=== PATIENT | male | born 1990 | race Caucasian/White ===

== ENCOUNTER 2019-12-03 17:41 | Outpatient (REF) | payer SELFPAY ==
[2019-12-03 19:35] LABS: SARS COV2 PCR INHOUSE NEGATIVE (Negative)
== END 2019-12-03 17:42 | disposition home or self-care (01) ==
LOC: HO.LAB 17:41
PROVIDERS: Visit Provider Internal Medicine
DX: Z20.828 Contact with and (suspected) exposure to other viral communicable diseases (principal)
CPT/HCPCS: 87635

== ENCOUNTER 2019-12-06 07:09 | Outpatient (REF) | payer SELFPAY ==
[2019-12-06 07:40] LABS: COVID-19 Test Negative (Negative)
== END 2019-12-06 07:10 | disposition home or self-care (01) ==
LOC: HO.LAB 07:09
PROVIDERS: Visit Provider Internal Medicine
DX: Z20.828 Contact with and (suspected) exposure to other viral communicable diseases (principal)
CPT/HCPCS: 87635

== ENCOUNTER 2020-01-19 15:12 | Outpatient (REF) | payer OTHER, SELFPAY ==
[2020-01-19 18:26] LABS: COVID-19 Test Negative (Negative); IDNOW Serial# 55D5AD1C
== END 2020-01-19 15:13 | disposition home or self-care (01) ==
LOC: HO.LAB 15:12
PROVIDERS: Visit Provider Internal Medicine
DX: Z20.828 Contact with and (suspected) exposure to other viral communicable diseases (principal)
CPT/HCPCS: 87635; C9803

== ENCOUNTER 2020-02-12 16:25 | Outpatient (REF) | payer OTHER, SELFPAY ==
[2020-02-12 17:38] LABS: COVID-19 Test Positive (Negative)
== END 2020-02-12 16:26 | disposition home or self-care (01) ==
LOC: HO.EMPCOV 16:25
PROVIDERS: Visit Provider Internal Medicine
DX: Z20.828 Contact with and (suspected) exposure to other viral communicable diseases (principal)
CPT/HCPCS: 87635

== ENCOUNTER 2020-12-15 11:40 | Outpatient (REF) | payer OTHER, SELFPAY ==
[2020-12-15 15:01] LABS: Influenza A PCR NEGATIVE (Negative); Influenza B PCR NEGATIVE (Negative); Resp Syncy Virus RNA Qual PCR NEGATIVE (Negative); SARS COV2 PCR INHOUSE NEGATIVE (Negative)
== END 2020-12-15 11:41 | disposition home or self-care (01) ==
LOC: HO.LAB 11:40
PROVIDERS: PCP Internal Medicine; Visit Provider Internal Medicine
DX: Z20.822 Contact with and (suspected) exposure to COVID-19 (principal)
CPT/HCPCS: 0241U; 36415

== ENCOUNTER 2021-08-12 15:57 | Outpatient (REF) | payer OTHER, SELFPAY ==
[2021-08-12 16:34] LABS: COVID-19 Test Negative (Negative); IDNOW Serial# 55D5AD1C
== END 2021-08-12 15:58 | disposition home or self-care (01) ==
LOC: HO.LAB 15:57
PROVIDERS: PCP Internal Medicine; Visit Provider Internal Medicine
DX: Z20.822 Contact with and (suspected) exposure to COVID-19 (principal)
CPT/HCPCS: 87635

== ENCOUNTER 2022-02-13 09:28 | Emergency (ER) | payer OTHER, SELFPAY ==
--- NOTE | ~2022-02-13 | XR_ITS ---
EXAMINATION: XR chest 2V CLINICAL INFORMATION: Reason for Exam chest pain COMPARISON: No prior chest x-ray available in our system for comparison at the time of this dictation. TECHNIQUE: XR chest 2V Lungs and Grace: Both lungs are clear. Pleura: Normal. Costophrenic angles are sharp. No pneumothorax. Heart: The heart is normal in size. Mediastinum: The mediastinum is within normal limits.. Bones: Skeletal structures included are normal for patient's age. XR/XR chest 2V IMPRESSION: Normal chest x-ray.
--- NOTE | 2022-02-13 09:30 | ECG_ITS ---
Test Reason : cp Blood Pressure : / mmHG Vent. Rate : 076 BPM Atrial Rate : 076 BPM P-R Int : 170 ms QRS Dur : 096 ms QT Int : 360 ms P-R-T Axes : 067 044 035 degrees QTc Int : 405 ms Normal sinus rhythm Normal ECG No previous ECGs available Referred By: Generic ED Physician Electronically Signed By:STEPHON ASHLEY
[2022-02-13 09:48] VITALS: BP 126/85; PULSE 78; RESP 18; TEMP 36.7; O2SAT 100; BMI 31.6
--- NOTE | 2022-02-13 10:16 | ED.CHESTPAIN ---
HPI - Chest Pain General Chief Complaint: Chest Pain Stated Complaint: chest pain Time Seen by Provider: 02/13/22 09:39 Source: patient Mode of arrival: ambulatory History of Present Illness HPI narrative: 31-year-old male without significant past medical history presents with substernal chest pain radiating into his back the prevented him from sitting up and deep breathing made the pain worse and although the pain has somewhat subsided still is strongest at mid back. He denies any traumatic injury and denies any association with fever, chills. Related Data Previous Rx's Medication Instructions Recorded cyclobenzaprine 5 mg tablet 5 mg PO BEDTIME PRN muscle spasm 02/13/22 #4 tabs ketorolac 10 mg tablet 10 mg PO Q6H PRN pain 5 days #20 02/13/22 tabs Allergies Allergy/AdvReac Type Severity Reaction Status Date / Time amoxicillin Allergy Unknown Unknown Verified 05/25/20 20:11 cats Allergy Severe swollen eye Uncoded 05/25/20 20:11 From AMOXIL Allergy Unknown UNKNOWN Uncoded 05/25/20 20:11 Review of Systems Review of Systems: Pertinent positives and negatives as stated in HPI. PMFSH Past Medical History Source: nursing notes reviewed Medical History Fatigue Sebaceous cyst Surgical History No history of previous surgery Family History Family History Mother No problems noted. Father No problems noted. Social History Social History Alcohol intake: never Advance Directives: No Advance Directives Information Provided: No Physical Exam Vital Signs: Vital Signs: Last Vital Signs Temp 98.1 F 02/13/22 09:48 Pulse 78 02/13/22 09:48 Resp 18 02/13/22 09:48 BP 126/85 02/13/22 09:48 Pulse Ox 100 02/13/22 09:48 O2 Del Method 02/13/22 09:48 BMI result Body Mass Index 31.6 VITAL SIGNS: Reviewed. GENERAL: Well developed, well nourished, in no acute distress. HEAD: Normocephalic/atraumatic EYES: PERRLA, EOMI EARS: Ext canals without abnormality OROPHARYNX: no oral lesions noted, posterior pharynx clear NECK: Supple, no adenopathy LUNGS: Normal breath sounds. No adventitious sounds or accessory muscle use. SpO2<100>; CHEST WALL: There is no pain on palpation CARDIOVASCULAR: Regular rate and rhythm without noted murmurs ABDOMEN: Soft, non-tender, non-distended with bowel sounds. BACK: There is midline vertebral tenderness at approximate T4/T6 with associated muscle spasm MUSCULOSKELETAL: No tenderness, deformities, or effusions noted on gross inspection. EXTREMITIES: No cyanosis, clubbing or edema. SKIN: Inspection of the skin reveals no rashes NEUROLOGIC: Alert and oriented x 4. Strength and sensation to light touch were grossly intact x 4. Medical Decision Making Medical Decision Making [facility] Narrative: 31-year-old male with presentation of substernal/back pain no clinical suspicion for aortic disease. I reviewed the investigations and there is no evidence to suggest PE, cardiac ischemia, pneumonia or pneumothorax. EKG is without acute findings. And viral testing is negative. Differential Diagnosis Differential Diagnoses: The differential diagnosis associated with the presentation includes I will rule out pneumonia, pneumothorax, PE, cardiac ischemia, viral infection Lab Data [facility] Lab Attestation statement: I reviewed the patient's lab results. Please see discussion above Labs: Lab Results 02/13/22 02/13/22 02/13/22 Range/Units 10:25 10:25 10:25 D-Dimer High Sensitivty < 150 NG/ML Troponin I High Sens (<3.5-35.0) ng/L COVID-19 (MICKY) Negative (Negative) COVID-19 Clin Com See Note Influenza Type A (GRETCHEN) Negative (Negative) Influenza Type B (GRETCHEN) Negative (Negative) Influenza A & B Note See Note 02/13/22 Range/Units 10:25 D-Dimer High Sensitivty NG/ML Troponin I High Sens < 3.5 (<3.5-35.0) ng/L COVID-19 (MICKY) (Negative) COVID-19 Clin Com Influenza Type A (GRETCHEN) (Negative) Influenza Type B (GRETCHEN) (Negative) Influenza A & B Note Independent Interpretation I performed an independent interpretation of an: EKG Interpretation: NSR, HR-76, no STEMI, WV/QRS/QTC is within normal limits. Radiology Impression Radiologist Impression: My interpretation is in agreement with radiology's impression of imaging study. Discharge Plan Discharge Clinical Impression: Back pain, Muscle spasm Patient Disposition: Home, Self-Care Instructions: Muscle Spasm (ED), Back Pain (ED) Additional Instructions: 1. Tylenol 1000 mg, orally, every 6 hours as needed for pain control. Do not exceed 4000 mg within 24 hours. 2. Lidocaine patch please apply to area of maximal tenderness as directed on the outside packaging. 3. I sent a prescription for Toradol and Flexeril to your pharmacy. 4. Follow-up with your primary care provider in the next 1-2 days for re-evaluation. Return to the ER for worsening symptoms. Prescriptions: New ketorolac 10 mg tablet 10 mg PO Q6H PRN (Reason: pain) 5 Days Qty: 20 0RF Rx Instructions: Patient received Toradol in the emergency room. cyclobenzaprine 5 mg tablet 5 mg PO BEDTIME PRN (Reason: muscle spasm) Qty: 4 0RF Referrals: Sanjiv Arguello PA-C [Primary Care Provider] - Stand Alone Forms: Work/School Release
[2022-02-13 10:46] LABS: D Dimer High Sensitivity < 150 NG/ML
[2022-02-13 10:51] LABS: COVID-19 Test Negative (Negative); IDNOW Serial# 55D5AD1C
[2022-02-13 10:55] LABS: IDNOW Serial# 9DB6401D; Influenza A Negative (Negative); Influenza B2 Negative (Negative)
[2022-02-13 11:19] LABS: Troponin-I High Sensitivity < 3.5 ng/L (<3.5-35.0)
[2022-02-13] MEDS: Acetaminophen 325 MG TABLET 975 MG PO (11:43)
[2022-02-13] MEDS: Ketorolac Tromethamine 15 MG/ML VIAL IM (11:44)
[2022-02-13] MEDS: Lidocaine 4 % Patch ADH..PATCH 1 PATCH TRANSDERMA (11:44)
== END 2022-02-13 11:58 | disposition home or self-care (01) ==
PROVIDERS: Emergency Provider Student in an Organized Health Care Education/Training Program; PCP Physician Assistant
DX: M54.6 Pain in thoracic spine (principal); M62.830 Muscle spasm of back; Z20.822 Contact with and (suspected) exposure to COVID-19
CPT/HCPCS: 36415; 71046; 84484; 85379; 87502; 87635; 93005; 96372; 99283; 99284; J1885

== ENCOUNTER 2023-03-21 14:32 | Outpatient (AMB) | payer OTHER, SELFPAY ==
--- NOTE | 2023-03-21 14:27 | A.OFFPC_ITS ---
Vital Signs 03/21/23 14:36 Height 5 ft 10 in Weight 199 lb BMI 28.6 BP 108/80 Blood Pressure Location Lt brachial Position Sitting Pulse 105 H Pulse Source Pulse Oximeter Pulse Oximetry (%) 98 Oxygen Delivery Method Room Air Intake Visit Reasons: Physical Exam Intake Note: Patient is here today for a physical. Last seen by PCP 03/27/2019 in [place] Pt needs clerance to return back to work due the Depression and Anxiety. 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 Accompanied by: Self / Same As Patient Allergies amoxicillin Allergy (Unknown, Verified 03/21/23 14:49) Unknown cats Allergy (Severe, Uncoded 03/21/23 14:27) swollen eye From AMOXIL Allergy (Unknown, Uncoded 03/21/23 14:27) UNKNOWN Medication List - Last Reconciled 03/21/23 by Sanjiv Arguello PA-C cyclobenzaprine 5 mg PO BEDTIME PRN Tobacco use date assessed: 03/21/23 Dental Screening Dental Screen Date: 03/21/23 Did you have a dental visit in the last 12 months?: Yes Did you have a dental problem in the last 6 months where you did not have access to dental care?: No Was dental information given to patient?: Patient has dentist HPI Physical Exam HPI Details Patient is a 32-year-old male here today for annual physical. Has not been seen in quite some time. Has been out of work lately due to his anxiety and depression. He reports he has been under lot of stress due to personal issues, he does admit to a suicide attempt last year and has been now on FMLA from work to help reduce his anxiety and depression. He has now been working with a mental health therapist and is not interested in starting any mental health medications. He feels he is ready to return back to work as it is a good distraction for him to return and give him a sense of purpose. 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 .. Nicotine dependence: Does use vaporizer cigarettes he does understand he needs to quit. He is found it very difficult to do so. PLAN: Will supply patient with nicotine replacement Vaccines: Up-to-date with COVID vaccine and tetanus vaccine, declines flu vaccine. [facility] Medical History Sebaceous cyst Fatigue Surgical History No history of previous surgery Family History Mother No problems noted. Father No problems noted. Social History (Updated 03/21/23 @ 15:04 by Sanjiv Arguello PA-C) Housing: Apartment Alcohol intake: never Tobacco use type: Smokeless Tobacco e-Cigarette/Vaping Use: Never Used service: No Current occupational status: employed Current occupation: [employer] Cognitive needs: No Hearing needs: No Vision needs: No Questionnaire PHQ-9 Over the last 2 weeks, how often have you been bothered by any of the following problems? 1. Little interest or pleasure in doing things: several days 2. Feeling down, depressed, or hopeless: several days 3. Trouble falling or staying asleep, or sleeping too much: nearly every day 4. Feeling tired or having little energy: more than half the days 5. Poor appetite or overeating: several days 6. Feeling bad about yourself - or that you are a failure or have let yourself or your family down: more than half the days 7. Trouble concentrating on things, such as reading the newspaper or watching television: several days 8. Moving or speaking so slowly that other people could have noticed. Or the opposite - being so fidgety or restless that you have been moving around a lot more than usual: several days 9. Thoughts that you would be better off or of hurting yourself in some way: not at all Total score: 12 Depression Screening Interpretation: Positive Depression Screening Follow-up: In treatment and Other ([facility]) Depression Screening Done: Yes 30857 - PHQ-9 Billing: Yes Source: Developed by Drs. Rudolph Rush, Amirah Rae, Alpesh Perez and colleagues, with an educational carla from [employer]. Thrive Questionnaire Date Thrive assessed: 03/21/23 I am a: Patient What is your living situation today?: I have a steady place to live Within the past 12 months, did the food you bought not last and you didn't have the money to get more?: Never true Within the past 12 months, did you worry whether your food would run out before you got money to buy more?: Never true Do you have trouble paying for medicines?: No Do you have trouble getting transportation to medical appointments?: No Do you have trouble paying your heating and electricity bill?: No Do you have trouble taking care of your child, family member or friend?: No Do you have trouble with day-to-day activities such as bathing, preparing meals, shopping, managing finances, etc.?: No Are you currently unemployed and looking for a job?: No Are you interested in more education?: No Please select the resources that you would like help with: None Currently or been in a relationship where the following occur: no concerns reported THRIVE Score: 0 AUDIT C Alcohol Use Questionnaire (AUDIT-C) 1. How often do you have a drink containing alcohol?: Monthly or less 2. How many drinks containing alcohol do you have on a typical day when you are drinking?: 1 or 2 3. How often do you have six or more drinks on one occasion?: Never Total Score: 1 RUEL-7 AMB Questionnaire RUEL-7 Date RUEL - 7 assessed: 03/21/23 Feeling nervous, anxious, or on edge: 1 = Several days Not being able to stop or control worryin = More than half the days Worrying too much about different things: 2 = More than half the days Trouble relaxin = Several days Being so restless that it is hard to sit still: 1 = Several days Becoming easily annoyed or irritable: 1 = Several days Feeling afraid as if something awful might happen: 1 = Several days Total RUEL-7 score (0-4 normal; 5-9 mild; 10-14 moderate; 15-21 severe): 9 Source: Developed by Drs. Rduolph Rush, Amirah Rae, Alpesh Perez and colleagues, with an educational carla from [employer]. RUEL-7 Assessment Billing RUEL-7 Assessment Tool: RUEL-7 Assessment 77402 Review of Systems Const Denies body aches, Denies chills, Denies excessive sweating, Denies fatigue, Denies fever(s) and Denies headache(s) Eyes Denies blurry vision ENT Denies dysphagia, Denies vertigo, Denies dizziness, Denies headache(s), Denies hearing loss and Denies tinnitus Card Denies chest pain, Denies chest pain with activity, Denies syncope, Denies irregular heart rhythm and Denies dyspnea Resp Denies chest congestion, Denies cough, Denies hemoptysis, Denies dyspnea and Denies wheezing GI Denies abdominal pain, Denies melena, Denies hematochezia, Denies coffee ground emesis, Denies dysphagia, Denies diarrhea, Denies nausea and Denies vomiting Denies difficulty urinating, Denies dysuria, Denies urinary frequency, Denies urinary hesitancy and Denies urinary urgency Musc Denies arthralgias, Denies limited range of motion, Denies muscle cramps and Denies muscle weakness Skin/Breast Denies rash and Denies skin ulcer Neuro Denies Abnormal speech present, Denies confusion, Denies vertigo, Denies dizziness, Denies syncope, Denies headache(s), Denies memory loss and Denies seizure-like activity Psych Denies anxiety, Denies confusion, Denies depression, Denies memory loss, Denies panic attacks and Denies paranoia Endo Denies excessive sweating, Denies fatigue, Denies flushing, Denies polydipsia and Denies polyuria Aller/Immun Denies wheezing Physical exam (Primary Care) Vital Signs: Last Vital Signs Pulse 105 H 03/21/23 14:36 BP 108/80 03/21/23 14:36 Pulse Ox 98 03/21/23 14:36 Oxygen Delivery Method Room Air 03/21/23 14:36 BMI result Body Mass Index 28.6 Tobacco/Smoking Status: Tobacco use Status Tobacco use date assessed 03/21/23 03/21/23 14:28 Patient Tobacco Use Status 03/21/23 15:04 Tobacco use type Smokeless Tobacco 03/21/23 15:04 e-Cigarette/Vaping Use Never Used 03/21/23 15:04 Are you ready to quit: Yes Tobacco cessation counseling provided: Yes Items discussed: Nicotine replacement Relapse Prevention: discussed the importance of a supportive environment, discussed negative mood or depression after quitting, weight gain after smoking is common and discussed dietary, exercise and/or lifestyle changes Number of minutes spent counselin CPT code: 56799 - 4-10 Minutes PHQ-9: PHQ-9 Score PHQ-9: Total score 12 03/21/23 14:53 Depression Screening Interpretation: Positive Depression Screening Follow-up: In treatment and Other ([facility]) Thrive Assessment: Date of Thrive Assessment Date Thrive assessed 03/21/23 03/21/23 14:28 Currently or been in a relationship where the following occur: no concerns reported Const General: cooperative, comfortable, no acute distress, alert and awake; No confusion Orientation/consciousness: oriented to person, oriented to place, patient oriented x3 and No confusion HENMT Head: Yes normocephalic Ears: external ears normal and TM's normal bilaterally Face and sinus: No sinus tenderness Mouth: Normal oral and palatal mucosa present and tongue normal Teeth and gingiva: dentition normal and gingiva normal Throat: Yes posterior oropharynx normal, Yes tonsils normal and Yes uvula m idline Eyes Conjunctivae: conjunctivae normal Sclerae: sclerae normal Pupils: Equal, round and reactive pupils present EOM: EOMs intact bilaterally Direct Ophthalmoscopy: No no photophobia Neck Neck: Yes no lymphadenopathy, No tender and Yes no JVD Thyroid: Thyroid normal Carotids: no bruits Chest Chest palpation & inspection: no tenderness Resp Effort & Inspection: normal respiratory effort, no audible wheezes, not labored and no stridor Auscultation: no crackles, no rales, no rhonchi and no wheezes Cardio Jugular venous distension: no JVD Rate: regular rate, not bradycardic and not tachycardic Rhythm: regular rhythm Bruits: no carotid bruits Peripheral pulses: Peripheral pulses 2+ throughout GI Inspection: Yes normal to inspection, No abdominal wall ecchymosis and No visible herniation Palpation (GI): Soft to palpation, nontender, no guarding, not rigid and No hepatosplenomegaly present Auscultation: normoactive bowel sounds General: Yes no CVA tenderness Back/Spine/Pelvis Back: no CVA tenderness and No back tenderness Cervical Spine: cervical ROM normal Thoracic/Lumbar Spine: thoracic and lumbar spine normal to inspection, straight leg raise negative bilaterally, No thoraco-lumbar ROM limited and No lumbar spinal tenderness Skin Lesions: no lesions Rashes: no rashes Wounds: no wounds Neuro General: oriented to person, oriented to place, patient oriented x3, CN's II-XI intact bilaterally and No confusion Cranial nerves: Yes Equal, round and reactive pupils present and Yes Normal accommodation reflex present Cognition (Neuro): normal cognition Speech: No Abnormal speech present Gait exam (Neuro): Normal gait present Motor exam (neuro): 5/5 motor strength present throughout Extrem Right upper extremity: full ROM; no cyanosis Left upper extremity: full ROM; no cyanosis Right lower extremity: no edema Left lower extremity: no edema Psych Appearance: grossly normal Mental Status: mental status grossly normal Affect: normal affect Attitude: cooperative Thought process: Normal thought process present Assessment and Plan Assessment & Plan (1) Annual physical exam: Code(s): Z00.00 - Encounter for general adult medical examination without abnormal findings (2) RUEL (generalized anxiety disorder): Code(s): F41.1 - Generalized anxiety disorder Plan: Patient's RUEL-7 score positive for anxiety which has been existing condition for him, currently speaking with a mental health therapist. He is interested in an as-needed medication for his anxiety. Will start low- dose hydroxyzine to use on as needed basis for anxiety symptoms and sleep. (3) MDD (major depressive disorder), recurrent episode, moderate: Code(s): F33.1 - Major depressive disorder, recurrent, moderate Plan: Patient's PHQ-9 score positive for depression which has been existing condition for him. He does admit to a suicide attempt in his lifetime. He is now speaking with a mental health therapist which has been helpful. He has not interested in daily medication for his depressed mood. He has been out on FMLA due to his anxiety and depression for few months now and feels much better now talking to a mental therapist.. Feels he is in a better place in his life and would like to return back to work in full duty. (4) Screening for diabetes mellitus (DM): Code(s): Z13.1 - Encounter for screening for diabetes mellitus (5) Nicotine dependence: Code(s): F17.200 - Nicotine dependence, unspecified, uncomplicated Qualifiers: Nicotine product type: unspecified Substance use status: uncomplicated Qualified Code(s): F17.200 - Nicotine dependence, unspecified, uncomplicated Plan: Patient does understand he needs to quit electronic cigarettes. He knows they are not good for his health. He is willing to try nicotine replacement to help him reduce his electronic cigarette use. (6) Right hip pain: Code(s): M25.551 - Pain in right hip Plan: Does report having some anterior right hip pain which is sharp and very intermittent. Likely an inguinal ligament strain. Would benefit from physical therapy though will hold off on this for now. Orders: Orders Comprehensive [place]. Panel Fast 03/21/23 Z13.1 - Encounter for screening for diabetes mellitus Medications: New hydroxyzine HCl 20 mg (2 x 10 mg) PO BEDTIME 30 days 60 tabs 1RF F41.1 - Generalized anxiety disorder, F41.9 - Anxiety disorder, unspecified nicotine 1 patch transdermal DAILY 28 days 28 ea 0RF F17.200 - Nicotine dependence, unspecified, uncomplicated nicotine 1 patch transdermal DAILY 28 days 28 ea 0RF F17.200 - Nicotine dependence, unspecified, uncomplicated nicotine 1 patch transdermal Q24H 14 days 14 ea 0RF F17.200 - Nicotine dependence, unspecified, uncomplicated Coding Level of Care Code Est Pt Prev Care [id number]([id number]) Diagnoses Annual physical exam Z00.00 RUEL (generalized anxiety disorder) F41.1 MDD (major depressive disorder), recurrent episode, moderate F33.1 Screening for diabetes mellitus (DM) Z13.1 Nicotine dependence, uncomplicated, unspecified nicotine product type F17.200 Nicotine product type: unspecified Substance use status: uncomplicated Right hip pain M25.551 Additional Codes RUEL-7 Assessment Billing - RUEL-7 Assessment Tool: RUEL-7 Assessment 14678 ([id number]) Vital Signs *Quality* - CPT code: 51876 - 4-10 Minutes ([id number])
[2023-03-21 14:36] VITALS: BP 108/80; PULSE 105; O2SAT 98; BMI 28.6
== END 2023-03-21 15:28 | disposition home or self-care (01) ==
PROVIDERS: PCP Physician Assistant; Visit Provider Physician Assistant
DX: Z00.00 Encounter for general adult medical examination without abnormal findings (principal); F41.1 Generalized anxiety disorder; F33.1 Major depressive disorder, recurrent, moderate; Z13.1 Encounter for screening for diabetes mellitus; F17.210 Nicotine dependence, cigarettes, uncomplicated; M25.551 Pain in right hip
CPT/HCPCS: 96127; 99395

== ENCOUNTER 2024-05-01 10:10 | Outpatient (REF) | payer OTHER, SELFPAY ==
--- NOTE | ~2024-05-01 | XR_ITS ---
EXAMINATION: XR HIP 2 OR MORE VIEWS RIGHT HISTORY: M25.551 - Pain in right hip COMPARISON: There are no prior studies for comparison. FINDINGS: Two views of the right hip are submitted. Osseous mineralization is normal. There is no fracture or dislocation. There is severe osteoarthritis with joint space narrowing and osteophyte formation. The soft tissues are unremarkable. XR/XR hip RT min 2V IMPRESSION: Severe osteoarthritis. Electronically signed by: Rudolph Wang MD 05/02/2024 11:53 AM EDT
[2024-05-01 12:04] LABS: Hematocrit 48.8 % (42.0-52.0); Mean Corpuscular HGB Conc 34.8 g/dl (31.0-36.0); Mean Corpuscular Hemoglobin 29.1 pg (27.0-33.0); Mean Corpuscular Volume 83.6 fL (80.0-98.0); Mean Platelet Volume 10.5 fL (9.4-12.4); Platelet Count 219 X10*3/uL (160-400); Red Blood Count 5.84 X10*6/uL (4.60-5.80); Red Cell Distribution Width 12.1 % (11.0-16.0); White Blood Count 6.1 X10*3/uL (4.8-10.8)
[2024-05-01 12:41] LABS: Albumin Level 4.5 g/dL (3.5-5.0); Alkaline Phosphatase 58 U/L (39-117); Anion Gap 11 (12-20); Aspartate Amino Transferase 35 U/L (5-37); Bilirubin Total 0.8 mg/dL (0.0-1.0); Blood Urea Nitrogen 12 mg/dL (9-16); Calcium 9.4 mg/dL (8.4-10.2); Carbon Dioxide 29 mmol/L (22-29); Chloride 105 mmol/L (96-108); Estimated Glomerular Filt Rate > 60; Glucose Fasting 88 mg/dL (60-99); Potassium 3.9 mmol/L (3.3-5.1); Sodium 141 mmol/L (135-145); Total Protein 7.8 g/dL (6.5-8.0)
[2024-05-01 12:51] LABS: Alanine Aminotransferase 37 U/L (0-40)
[2024-05-01 13:53] LABS: Appearance Urine Clear; Color Urine Dark Yellow; Glucose Urine UA Negative (Negative); Leukocyte Esterase Urine Negative (Negative); Nitrite Urine Negative (Negative); PH 5.5 (5.0-9.0); Specific Gravity - Urine 1.025 (1.005-1.025); Urine Blood Negative (Negative); Urine Ketones Negative (Negative); Urine Protein Negative (Neg-Trace)
== END 2024-05-01 10:11 | disposition home or self-care (01) ==
LOC: HO.LAB 10:10
PROVIDERS: PCP Physician Assistant; Visit Provider Physician Assistant
DX: Z00.01 Encounter for general adult medical examination with abnormal findings (principal); F33.1 Major depressive disorder, recurrent, moderate; F41.1 Generalized anxiety disorder; M25.551 Pain in right hip; N50.89 Other specified disorders of the male genital organs; R30.0 Dysuria; F17.200 Nicotine dependence, unspecified, uncomplicated
CPT/HCPCS: 36415; 73502; 80053; 81003; 85027; 96127

== ENCOUNTER 2024-05-01 10:10 | Outpatient (AMB) | payer OTHER, SELFPAY ==
[2024-05-01 10:31] VITALS: BP 108/72; PULSE 81; TEMP 36; O2SAT 99; BMI 27.3
--- NOTE | 2024-05-01 10:31 | MHC.PC.OV ---
Vital Signs 05/01/24 10:31 Height 5 ft 10 in Weight 190 lb 2 oz BMI 27.3 BP 108/72 Blood Pressure Location Lt brachial Position Sitting Pulse 81 Pulse Source Pulse Oximeter Temp 96.8 F Temp Source Temporal Artery Scan Pulse Oximetry (%) 99 Oxygen Delivery Method Room Air Intake Visit Reasons: Annual Exam, Reschedule Fuel Quality Tech Required: No Accompanied by: Self / Same As Patient Allergies amoxicillin Allergy (Unknown, Verified 05/01/24 10:47) Unknown cats Allergy (Severe, Uncoded 05/01/24 10:47) swollen eye From AMOXIL Allergy (Unknown, Uncoded 05/01/24 10:47) UNKNOWN Medication List - Last Reconciled 05/01/24 by Sanjiv Arguello PA-C No Known Home Meds Tobacco use date assessed: 05/01/24 Dental Screening Dental Screen Date: 05/01/24 Did you have a dental visit in the last 12 months?: No Did you have a dental problem in the last 6 months where you did not have access to dental care?: Yes Was dental information given to patient?: Patient has dentist HPI Annual Exam, Reschedule HPI Details Patient is a 33-year-old male here today for annual physical. Has not been seen in quite some time. Has been out of work lately due to his anxiety and depression. --Concern-> chronic right hip and groin pain. Approximately one year ago, the patient began experiencing persistent pain in the right hip and groin region, initially thought to be related to a potential groin sprain. The pain is sharp, worsens upon movement, and has significantly interfered with daily tasks. Attempts at self-directed rest and exercises have not alleviated the symptoms. There is a reported history of a fall on ice, but no direct injury was identified at the time. The patient now also reports swelling in the affected area. He also has noted a mass in his scrotum he would like evaluated. .. Nicotine dependence: Does use vaporizer cigarettes he does understand he needs to quit. He is found it very difficult to do so. PLAN: Will supply patient with nicotine replacement Vaccines:: Up-to-date with COVID and tetanus vaccines [facility] Medical History Sebaceous cyst Fatigue Surgical History No history of previous surgery Family History Mother No problems noted. Father No problems noted. Social History Housing: Apartment Alcohol intake: never Tobacco use type: Smokeless Tobacco e-Cigarette/Vaping Use: Never Used service: No Current occupational status: employed Current occupation: [employer] Cognitive needs: No Hearing needs: No Vision needs: No Questionnaire PHQ-9 Over the last 2 weeks, how often have you been bothered by any of the following problems? 1. Little interest or pleasure in doing things: not at all 2. Feeling down, depressed, or hopeless: not at all 3. Trouble falling or staying asleep, or sleeping too much: not at all 4. Feeling tired or having little energy: not at all 5. Poor appetite or overeating: not at all 6. Feeling bad about yourself - or that you are a failure or have let yourself or your family down: not at all 7. Trouble concentrating on things, such as reading the newspaper or watching television: not at all 8. Moving or speaking so slowly that other people could have noticed. Or the opposite - being so fidgety or restless that you have been moving around a lot more than usual: not at all 9. Thoughts that you would be better off or of hurting yourself in some way: not at all Total score: 0 Depression Screening Interpretation: Negative Depression Screening Done: Yes 63721 - PHQ-9 Billing: Yes Source: Developed by Drs. Rudolph Rush, Amirah Rae, Alpesh Perez and colleagues, with an educational carla from [employer]. Thrive Questionnaire Date Thrive assessed: 04/29/24 I am a: Patient What is your living situation today?: I have a steady place to live Within the past 12 months, did the food you bought not last and you didn't have the money to get more?: Never true Within the past 12 months, did you worry whether your food would run out before you got money to buy more?: Never true Do you have trouble paying for medicines?: No Do you have trouble getting transportation to medical appointments?: No Do you have trouble paying your heating and electricity bill?: No Do you have trouble taking care of your child, family member or friend?: No Do you have trouble with day-to-day activities such as bathing, preparing meals, shopping, managing finances, etc.?: No Are you currently unemployed and looking for a job?: No Are you interested in more education?: No Please select the resources that you would like help with: None Currently or been in a relationship where the following occur: No concerns reported THRIVE Score: 0 AUDIT C Alcohol Use Questionnaire (AUDIT-C) 1. How often do you have a drink containing alcohol?: Monthly or less 2. How many drinks containing alcohol do you have on a typical day when you are drinking?: 1 or 2 3. How often do you have six or more drinks on one occasion?: Never Total Score: 1 RUEL-7 AMB Questionnaire RUEL-7 Date RUEL - 7 assessed: 03/21/23 Feeling nervous, anxious, or on edge: 0 = Not at all Not being able to stop or control worryin = Not at all Worrying too much about different things: 0 = Not at all Trouble relaxin = Not at all Being so restless that it is hard to sit still: 0 = Not at all Becoming easily annoyed or irritable: 0 = Not at all Feeling afraid as if something awful might happen: 0 = Not at all Total RUEL-7 score (0-4 normal; 5-9 mild; 10-14 moderate; 15-21 severe): 0 Source: Developed by Drs. Rudolph Rush, Amirah Rae, Alpesh Perez and colleagues, with an educational carla from [employer]. RUEL-7 Assessment Billing RUEL-7 Assessment Tool: RUEL-7 Assessment 08105 Review of Systems Const Denies body aches, Denies chills, Denies excessive sweating, Denies fatigue, Denies fever(s) and Denies headache(s) Eyes Denies blurry vision ENT Denies dysphagia, Denies vertigo, Denies dizziness, Denies headache(s), Denies hearing loss and Denies tinnitus Card Denies chest pain, Denies chest pain with activity, Denies syncope, Denies irregular heart rhythm and Denies dyspnea Resp Denies chest congestion, Denies cough, Denies hemoptysis, Denies dyspnea and Denies wheezing GI Denies abdominal pain, Denies melena, Denies hematochezia, Denies coffee ground emesis, Denies dysphagia, Denies diarrhea, Denies nausea and Denies vomiting Denies difficulty urinating, Denies dysuria, Denies urinary frequency, Denies urinary hesitancy and Denies urinary urgency Musc Denies arthralgias, Denies limited range of motion, Denies muscle cramps and Denies muscle weakness Skin/Breast Denies rash and Denies skin ulcer Neuro Denies Abnormal speech present, Denies confusion, Denies vertigo, Denies dizziness, Denies syncope, Denies headache(s), Denies memory loss and Denies seizure-like activity Psych Denies anxiety, Denies confusion, Denies depression, Denies memory loss, Denies panic attacks and Denies paranoia Endo Denies excessive sweating, Denies fatigue, Denies flushing, Denies polydipsia and Denies polyuria Aller/Immun Denies wheezing Physical exam (Primary Care) Vital Signs: Last Vital Signs Temp 96.8 F 05/01/24 10:31 Pulse 81 05/01/24 10:31 BP 108/72 05/01/24 10:31 Pulse Ox 99 05/01/24 10:31 Oxygen Delivery Method Room Air 05/01/24 10:31 BMI result Body Mass Index 27.3 Tobacco/Smoking Status: Tobacco use Status Tobacco use date assessed 05/01/24 05/01/24 10:44 Tobacco use type Smokeless Tobacco 05/01/24 10:33 e-Cigarette/Vaping Use Never Used 05/01/24 10:33 Are you ready to quit: No Tobacco cessation counseling provided: Yes Items discussed: Nicotine replacement Relapse Prevention: discussed the importance of a supportive environment, discussed negative mood or depression after quitting, weight gain after smoking is common and discussed dietary, exercise and/or lifestyle changes Number of minutes spent counselin CPT code: 74339 - 4-10 Minutes PHQ-9: PHQ-9 Score PHQ-9: Total score 0 05/01/24 10:51 Depression Screening Interpretation: Negative Thrive Assessment: Date of Thrive Assessment Date Thrive assessed 04/29/24 05/01/24 10:33 Currently or been in a relationship where the following occur: No concerns reported Const General: cooperative, comfortable, no acute distress, alert and awake; No confusion Orientation/consciousness: oriented to person, oriented to place, patient oriented x3 and No confusion HENMT Head: Yes normocephalic Ears: external ears normal and TM's normal bilaterally Face and sinus: No sinus tenderness Mouth: Normal oral and palatal mucosa present and tongue normal Teeth and gingiva: dentition normal and gingiva normal Throat: Yes posterior oropharynx normal, Yes tonsils normal and Yes uvula midline Eyes Conjunctivae: conjunctivae normal Sclerae: sclerae normal Pupils: Equal, round and reactive pupils present EOM: EOMs intact bilaterally Direct Ophthalmoscopy: No no photophobia Neck Neck: Yes no lymphadenopathy, No tender and Yes no JVD Thyroid: Thyroid normal Carotids: no bruits Chest Chest palpation & inspection: no tenderness Resp Effort & Inspection: normal respiratory effort, no audible wheezes, not labored and no stridor Auscultation: no crackles, no rales, no rhonchi and no wheezes Cardio Jugular venous distension: no JVD Rate: regular rate, not bradycardic and not tachycardic Rhythm: regular rhythm Bruits: no carotid bruits Peripheral pulses: Peripheral pulses 2+ throughout GI Inspection: Yes normal to inspection, No abdominal wall ecchymosis and No visible herniation Palpation (GI): Soft to palpation, nontender, no guarding, not rigid and No hepatosplenomegaly present Auscultation: normoactive bowel sounds General: Yes no CVA tenderness Back/Spine/Pelvis Back: no CVA tenderness and No back tenderness Cervical Spine: cervical ROM normal Thoracic/Lumbar Spine: thoracic and lumbar spine normal to inspection, straight leg raise negative bilaterally, No thoraco-lumbar ROM limited and No lumbar spinal tenderness Skin Lesions: no lesions Rashes: no rashes Wounds: no wounds Neuro General: oriented to person, oriented to place, patient oriented x3, CN's II-XI intact bilaterally and No confusion Cranial nerves: Yes Equal, round and reactive pupils present and Yes Normal accommodation reflex present Cognition (Neuro): normal cognition Speech: No Abnormal speech present Gait exam (Neuro): Normal gait present Motor exam (neuro): 5/5 motor strength present throughout Extrem Other: RIGHT HIP: DECREASED RANGE OF MOTION TO FLEXION AND EXTENSION COMPARED TO LEFT HIP Right upper extremity: full ROM; no cyanosis Left upper extremity: full ROM; no cyanosis Right lower extremity: no edema Left lower extremity: no edema Psych Appearance: grossly normal Mental Status: mental status grossly normal Affect: normal affect Attitude: cooperative Thought process: Normal thought process present Coding Level of Care Code Est Pt Prev Care 18-39y(87498) Diagnoses Annual physical exam Z00.00 MDD (major depressive disorder), recurrent episode, moderate F33.1 RUEL (generalized anxiety disorder) F41.1 Nicotine dependence, uncomplicated, unspecified nicotine product type F17.200 Nicotine product type: unspecified Substance use status: uncomplicated Right hip pain M25.551 Testicular mass N50.89 Additional Codes RUEL-7 Assessment Billing - RUEL-7 Assessment Tool: RUEL-7 Assessment 94287 ([id number]) PHQ-9 - 48078 - PHQ-9 Billing: Yes ([id number]) Vital Signs *Quality* - CPT code: 46598 - 4-10 Minutes ([id number]) Assessment & Plan Assessment & Plan (1) Annual physical exam: Code(s): Z00.00 - Encounter for general adult medical examination without abnormal findings Category: Medical Plan: As per HPI (2) MDD (major depressive disorder), recurrent episode, moderate: Code(s): F33.1 - Major depressive disorder, recurrent, moderate Category: Medical Plan: Patient depression has been a bit better from previous years. Personal issues have been more resolving. He does report worsening depression what his dad was diagnosed with cancer. At this time not taking any mental health medications (3) RUEL (generalized anxiety disorder): Code(s): F41.1 - Generalized anxiety disorder Category: Medical Plan: Patient reports his anxiety has been a bit better as of late. (4) Nicotine dependence: Code(s): F17.200 - Nicotine dependence, unspecified, uncomplicated Category: Medical Qualifiers: Nicotine product type: unspecified Substance use status: uncomplicated Qualified Code(s): F17.200 - Nicotine dependence, unspecified, uncomplicated Plan: He does admit to still smoking vaporizer cigarettes. He does understand he needs to quit smoking and will wean on his own. (5) Right hip pain: Code(s): M25.551 - Pain in right hip Category: Medical Plan: the patient and I discussed his chronic hip pain, likely related to a structural issue in the groin or hip. The planned diagnostic steps were outlined as starting with an X-ray, followed by an MRI if necessary after physical therapy trials. The possibility of seeing an fire management specialist for further evaluation was considered. (6) Testicular mass: Code(s): N50.89 - Other specified disorders of the male genital organs Category: Medical Plan: Patient reports a palpable testicular mass he would like evaluated. Has had similar episodes in the past to which were benign. Orders: Orders XR hip RT min 2V 05/01/24 M25.551 - Pain in right hip MR hip RT wo con 05/01/24 M24.559 - Contracture, unspecified hip, M25.551 - Pain in right hip Comprehensive [place]. Panel Fast 05/01/24 Z13.1 - Encounter for screening for diabetes mellitus Complete Blood Count no Diff 05/01/24 Z13.1 - Encounter for screening for diabetes mellitus US scrotum 05/01/24 N50.89 - Other specified disorders of the male genital organs PT Evaluation and Treatment 05/01/24 M25.551 - Pain in right hip UA CC w/rflx Micro + Cult 05/01/24 N50.89 - Other specified disorders of the male genital organs, R30.0 - Dysuria Referrals Orthopedics Referral M25.551 - Pain in right hip Medications: New meloxicam 15 mg PO DAILY 30 days PRN 30 tabs 1RF pain (scale score 7-10) M24.559 - Contracture, unspecified hip baclofen 10 mg PO BEDTIME 30 days 30 tabs 1RF M76.892 - Other specified enthesopathies of left lower limb, excluding foot meloxicam 15 mg PO DAILY 30 days PRN 30 tabs 1RF pain (scale score 7-10) M24.559 - Contracture, unspecified hip
== END 2024-05-01 11:18 | disposition home or self-care (01) ==
LOC: HO.HMCH 10:10
PROVIDERS: PCP Physician Assistant; Visit Provider Physician Assistant
DX: Z00.00 Encounter for general adult medical examination without abnormal findings (principal); F33.1 Major depressive disorder, recurrent, moderate; F41.1 Generalized anxiety disorder; F17.200 Nicotine dependence, unspecified, uncomplicated; M25.551 Pain in right hip; N50.89 Other specified disorders of the male genital organs

== ENCOUNTER → 2024-05-01 11:52 | Outpatient (BNV) | payer OTHER, SELFPAY | PROVIDERS: PCP Physician Assistant; Visit Provider Radiology Diagnostic Radiology | DX: M16.11 Unilateral primary osteoarthritis, right hip (principal) | CPT/HCPCS: 73502 ==

== ENCOUNTER 2024-05-07 17:46 | Outpatient (REF) | payer OTHER, SELFPAY ==
--- NOTE | ~2024-05-07 | MR_ITS ---
CLINICAL HISTORY: PAIN, EXTENSION CONTRACTURE OF RIGHT HIP Exam: MRI of the right hip without intravenous contrast. Comparison: Radiographs May 01, 2024. Findings: Severe degenerative change of the right hip joint seen on the patient's radiographs. There is joint space narrowing and osteophyte formation. Subcortical cystic changes seen along the acetabular roof with degenerative appearing tear of the anterosuperior acetabular labrum. Mild subcortical bone marrow edema of the acetabulum and femoral head. Small knee joint effusion with tiny areas of intra-articular debris and loose bodies measuring up to 2 mm in size. Muscles and tendons about the right hip are intact. Pubic rami are intact. No muscle atrophy. 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 Please see above for full details. This document has been electronically signed by: Heath Ng MD on 05/09/2024 10:45:10
--- OUTSIDE RECORDS SUMMARY | 2024-05-07 19:14 | XMS_ITS | Clinical Summary ---
Author Organization [facility] ity Address [address] [place] [address] Care Team Providers Care Supervisor Sign Shop Name Role Phone Unavailable Primary Care Provider Unavailabl e Social History Tobacco Use Types Packs/Day Years Used Date Smoking Tobacco: Never Assessed Sex and Gender Information Value Date Recorded Sex Assigned at Not on file Legal Sex Male 11:45 PM EST Gender Identity Not on file Sexual Orientation Not on file Plan of Treatment Health Maintenance Due Date Last Done Comments DTaP,Tdap,and Td Vaccines (1 - Tdap) 2008 Hepatitis B Vaccines (1 of 3 - 19+ 3-dose series) 2008 COVID-19 Vaccine (2023-2 5 season) 2023 Influenza Vaccine (#1) 2023 HIB Vaccines Aged Out No longer eligi ble based on patient's age to complete this topic HPV Vaccines Aged Out No longer eligi ble based on patient's age to complete this topic Hepatitis A Vaccines Aged Out No long er eligible based on patient's age to complete this topic IPV Vaccines Aged Out No longer eligi ble based on patient's age to complete this topic MMR Vaccines Aged Out No longer eligi ble based on patient's age to complete this topic Meningococcal ACWY Vaccine Aged Out N o longer eligible based on patient's age to complete this topic Meningococcal B Vacine Aged Out No lo nger eligible based on patient's age to complete this topic Pneumococcal Vaccine: Pediat rics (0 to 5 Years) and At-Risk Patients (6 to 64 Years) Aged Out No longer eligible b ased on patient's age to complete this topic RSV Immunization Patients Un junie 20 months Aged Out No longer eligible b ased on patient's age to complete this topic Varicella Vaccines Aged Out No longer eligible based on patient's age to complete this topic
--- OUTSIDE RECORDS SUMMARY | 2024-05-07 19:15 | XMS_ITS | Data Portability ---
Author Organization [facility] Address [address] [facility] [address] [place] [address] Care Team Providers Care Director Of Infection Control Name Role Phone TE ROJAS Primary Care Provider Assessment Encounter Date Assessment Date Assessment LastModified by Organization Details LastModified Time 07/17/2016 07/17/2016 Alec Coon is a 25 year old man with complaints of left ankle pain which started 10 year ago after a sprain. He has been having increased pain for the past six months. On exam, he has pain and swelling in his left ankle with a positive anterior drawer sign. He has flat foot.MRI left ankle shows there is an osteochondral lesion of the lateral talar dome measuring 1.2 x 0.8 cm consisting of articular cartilage thinning and surface irregularity with mild subchondral edema and minimal subchondral cyst formation. No joint effusion. We discussed treatment options 1. I recommend a course of physical therapy- I have given him a prescription for [facility] which is close to his work. 2. I also recommend a course of anti inflammatories such as Ibuprofen and have given him a sample. 3. I recommend a second opinion with Dr. Peres at [facility]. [email or web address] Not available 07/19/2016 08:41:38 Plan of Treatment Reminders Order Date Submit Date Provider Last Modified By Organization Details Last Modified Time Details Appointments None recorded. Lab None recorded. Referral physical therapist referral 2016 017 [facility], [address] [place] [address], [place], [address], 7 15:17:23 Procedures None recorded. Surgeries None recorded. Imaging None recorded. Medication Orders None recorded. Patient TargetsNo targets recorded. Patient Instructions Encounter Date Encounter Id Patient Instructions Last Modified By Organization Details Last Modified Time 07/17/2016 [id number] physical therapy* Not available 08/07/2016 11:48:39 Benefits of smoking cessation was reviewed in detail and he was advised to continue with activities as tolerated. [email or web address] Not available 07/19/2016 08:41:42 Reason for Referral Referring Physician: Kathryn xiao, Pain Management, Encounter Date: 07/17/2016 Medical Equipment None Reported. Allergies Allergen ID Allergen Name Allergen Category Reaction Reaction Severity Criticality Documentation Date Start Date Code Code System Note Provider Name and Address Organization Details Recorded Time 40133 amoxicill in medicatio n rash Not available Not available 07/17/2016 723 [facility] Azalia jin [facility] - [facility] 7 15:43:49 Medications Not known to be on any medication Vitals Date Recorded Heart rate Oxygen saturation Oxygen saturation in Arterial blood by Pulse oximetry Body height Body weight Body mass index (BMI) Systolic blood pressure Diastolic blood pressure Provider Name and Address Organization Details Last Updated DateTime 7 72 /min 98 % 98 % 177.8 cm 229551. 09 g 35.9 kg/m2 121 mm[Hg] 71 mm[Hg] Azalia Terrazas MA - [facility] 7 15:42:44 Social History Question Answer Notes LastModified by Organizat ion Details LastModified Time Tobacco Smoking Status Former Smoker Quit x 5 months Not Available [email or web address] 11/28/2019 03:16:12 What Is Your Level Of Alcohol Consumption? Moderate [id number] Information not available 11/28/2019 Are You Currently Employed? Yes [employer] [id number] Information not available 11/28/2019 Which Illicit Or Recreational Drugs Have You Used? 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 With Others Information not available 07/17/2016 Marital Status Single Informatio n not available 07/17/2016 How Many Years Have You Smoked Tobacco? 2 [id number] Information not available 11/28/2019 Sex: Unknown Functional Status None recorded. Mental Status None recorded. Family History Relationship Description Onset Age of this Age Resolved Age Notes LastModified by Organization Details LastModified Time Maternal Aunt Diabetes mellitus Multip le family member s [email or web address] Not available 07/17/2016 15:45:07 Notes:Mother and sister with Hypothyroidism. Medical History No medical history recorded. Past Encounters Encounter ID Performer Location Encounter Start Date Encounter Closed Date Diagnosis/Indication Diagnosis SNOMED-CT Code Diagnosis ICD10 Code Diagnosis Note [id number] Kathryn Porter MD PAIN OFFICE [address] [facility] [address] [place] [address] 07/17/2016 15:32:34 07/19/2016 08:43:38 Ankle joint pain 238815505 M25.572 Osteochond ral defect of talus 732054221 M21.6X2 Health Concerns Section Related Observation LastModified by Organization Detai ls LastModified Time None Recorded Concern Status LastModified by Organization Details LastModified Time None Recorded Advance Directives Directive None Recorded Payers Encounter Date Sequence Insurance Name Policy Number Policy Díaz Covered Member ID Díaz Member ID Guarantor Name 07/17/[address] [place] [address] ([facility]) [id number] Alec Coon [id number] Alec Coon Notes Date Note Type Note Provider Name and Address Organization Details Recorded Time 07/17/2016 text/html Alec Coon is a 25 year old man with complaints of pain in his left ankle. He states the pain started 10 years after a sprained ankle while playing football. He has been having pain in his left ankle on and off since the injury. For the past six months , he has been having an exacerbation of his pain. Current pain level is 5/10. High pain level is 8/10 and low pain level is 3/10. He describes the pain as a sharp, throbbing and aching pain and feels the lateral aspect of his left ankle is numb and has mild swelling. Walking, running and standing for prolonged periods aggravates his pain. Pain is relieved with rest. He has no history of low back pain. He has no history of bladder or bowel incontinence.He has seen Dr. Hernandez in [place], [place] who has recommended surgery.X-ray of his left ankle is unremarkable.MRI left ankle shows there is an osteochondral lesion of the lateral talar dome measuring 1.2 x 0.8 cm consisting of articular cartilage thinning and surface irregularity with mild subchondral edema and minimal subchondral cyst formation. No joint effusion. Kathryn Porter MD [address] [place] [address] , [address], [place], [address], [facility] 07/20/2016 16:43:29
== END 2024-05-07 17:47 | disposition home or self-care (01) ==
LOC: HO.MRI 17:46
PROVIDERS: PCP Physician Assistant; Visit Provider Physician Assistant
DX: M25.551 Pain in right hip (principal); M24.551 Contracture, right hip
CPT/HCPCS: 73721

== ENCOUNTER → 2024-05-07 17:57 | Outpatient (BNV) | payer OTHER, SELFPAY | PROVIDERS: PCP Physician Assistant; Visit Provider Radiology Diagnostic Radiology | DX: M16.11 Unilateral primary osteoarthritis, right hip (principal); M24.851 Other specific joint derangements of right hip, not elsewhere classified | CPT/HCPCS: 73721 ==

== ENCOUNTER 2024-06-23 10:38 | Outpatient (AMB) | payer OTHER, SELFPAY ==
--- NOTE | 2024-06-23 10:45 | A.OFFVIS_ITS ---
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 Patient reports ongoing pain for about 4 years. He was seen by his PCP in the past and was told having a muscle spasms. His pain slowly went away, however returned with sharp pain near the groin and to the lateral aspect of the hip. He complains of a pressure sensation that travels down his leg. He has difficulty with getting in and out of car and bending down. He mentions of a history of falls in the past. Finds some relief with Meloxicam. MRI done. 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 Please see above for full details. 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 He states the pain has been present for several years which is causing him to alter his daily activities and it is even interfering with his daily work schedule. He denies specific injury but he does recall having been told he had a labral tear in the hip but did not undergo surgical intervention. He complains of pain in the groin but also limited motion and feeling as though the hip gets locked in certain positions. He is unable to get down in deep squatting positions and perform lifting duties due to the pain. [facility] Medical History Sebaceous cyst Fatigue Surgical History No history of previous surgery Family History Mother No problems noted. Father No problems noted. Social History Housing: Apartment Alcohol intake: never Tobacco use type: Smokeless Tobacco e-Cigarette/Vaping Use: Never Used service: No Current occupational status: employed Current occupation: [email or web address] Cognitive needs: No Hearing needs: No Vision needs: No Review of Systems Const All systems reviewed & are unremarkable except as noted in HPI and below Physical Exam Vital Signs: BMI result Body Mass Index 27.3 Const General: cooperative and no acute distress Orientation/consciousness: patient oriented x3 Resp Effort & Inspection: normal respiratory effort and able to speak in complete sentences Cardio Peripheral pulses: Peripheral pulses 2+ throughout Neuro General: patient oriented x3 Extrem Other: Right hip is normal to inspection. He does have limited range of motion of the left hip when pain with DIONISIO Results Reviewed Results Reviewed: X-rays of the right hip obtained in the office today and reviewed by me show moderate to severe arthritis of the right hip with osteophyte formation Assessment & Plan Assessment & Plan (1) Osteoarthritis of left hip: Code(s): M16.12 - Unilateral primary osteoarthritis, left hip Category: Medical Plan: Dr. Hernandez was available to see the patient with me today. We discussed the extent of the patient's arthritis along with options available. While he could be a candidate for a total hip arthroplasty he is quite young and would require a complex revision 15-[address] if not sooner. Our goal at this time would be to get the patient to a point where he can function and perform daily activities with minimal pain. He does have some relief with the meloxicam however he has not done physical therapy. An order for therapy has been placed to work on glute strengthening and core stabilization techniques to help with his overall functioning of the hip region. We will also limit his activities at work to no deep bending or twisting and also avoid lifting pushing pulling or carrying greater than 30 lb. Like to see him back in 3 months for reassessment, sooner if needed. Orders: Orders PT Evaluation and Treatment Today M16.12 - Unilateral primary osteoarthritis, left hip XR pelvis 1-2V Today M25.559 - Pain in unspecified hip Coding Level of Care Code New Pt Level 4 (32464) Complex EM visit Add On G2211 Diagnoses Osteoarthritis of left hip M16.12
[2024-06-23 10:46] VITALS: BMI 27.3
== END 2024-06-23 14:31 | disposition home or self-care (01) ==
LOC: HO.HOS 10:39
PROVIDERS: PCP Physician Assistant; Visit Provider Physician Assistant
DX: M16.12 Unilateral primary osteoarthritis, left hip (principal)
CPT/HCPCS: 99203

== ENCOUNTER → 2024-06-23 10:41 | Outpatient (BNV) | payer OTHER, SELFPAY | PROVIDERS: Visit Provider Radiology Diagnostic Radiology | DX: M16.0 Bilateral primary osteoarthritis of hip (principal) | CPT/HCPCS: 72170 ==

== ENCOUNTER 2024-06-23 11:20 | Outpatient (REF) | payer OTHER, SELFPAY ==
--- NOTE | ~2024-06-23 | XR_ITS ---
EXAMINATION: XR PELVIS CLINICAL INFORMATION: M25.559 - Pain in unspecified hip COMPARISON: May 01, 2024. TECHNIQUE: AP view of the pelvis. FINDINGS: Sclerosis along the articular surface with subchondral cyst formation and asymmetric joint space narrowing involving the right coxofemoral joint. Mild sclerosis along the articular surface of the left acetabulum. No acute cortical disruption or gross malalignment. XR/XR pelvis 1-2V IMPRESSION: Moderate to severe osteoporosis, right hip. Mild to moderate osteoarthrosis, left hip. Electronically signed by: Tejas Funez MD 06/23/2024 11:51 AM EDT
== END 2024-06-23 11:21 | disposition home or self-care (01) ==
LOC: HO.HOSX 11:20
PROVIDERS: Visit Provider Physician Assistant
DX: M25.559 Pain in unspecified hip (principal)
CPT/HCPCS: 72170

== ENCOUNTER 2024-09-29 09:41 | Outpatient (AMB) | payer OTHER, SELFPAY ==
--- NOTE | 2024-09-29 09:45 | A.OFFVIS_ITS ---
Intake Visit Reasons: OV-Pain in the RT [id number] for work status Intake Note: Alec is a 33 year old male who presents today for a follow up of his Left Hip OA. At his last visit we discussed YULISSA at a young age requiring a revision. At this time he is on light duty with no lifting, pushing or pulling greater than 30 lbs. Patient reports that his employer is aware of the restrictions, but they are not fully complying with these restrictions. He is feeling better with physical therapy but he continues to have good and bad days. He feels that these bad days happen after periods of over exhertion. He is taking the meloxicam, which he has realized his helping significantly. Allergies amoxicillin Allergy (Unknown, Verified 06/23/24 10:49) Unknown cats Allergy (Severe, Uncoded 06/23/24 10:49) swollen eye From AMOXIL Allergy (Unknown, Uncoded 06/23/24 10:49) UNKNOWN HPI HPI OV-Pain in the RT [id number] for work status: Details: Alec is a 33 year old male who presents today for a follow up of his Left Hip OA. At his last visit we discussed YULISSA at a young age requiring a revision. At this time he is on light duty with no lifting, pushing or pulling greater than 30 lbs. Patient reports that his employer is aware of the restrictions, but they are not fully complying with these restrictions. He is feeling better with physical therapy but he continues to have good and bad days. He feels that these bad days happen after periods of over exhertion. He is taking the meloxicam, which he has realized his helping significantly. He still gets pretty frustrate d with the pain as he feels he can not hang out with people his own age or do activities that he would typically not think twice about such as playing with his child are going to the gym more just walking her extended periods of time. He has been having difficulty sleeping at night because of the pain and start taking baclofen which he does not think he is working. [facility] Medical History Sebaceous cyst Fatigue Surgical History No history of previous surgery Family History Mother No problems noted. Father No problems noted. Social History Housing: Apartment Alcohol intake: never Tobacco use type: Smokeless Tobacco e-Cigarette/Vaping Use: Never Used service: No Current occupational status: employed Current occupation: [employer] Cognitive needs: No Hearing needs: No Vision needs: No Physical Exam Const General: cooperative and no acute distress Orientation/consciousness: patient oriented x3 Resp Effort & Inspection: normal respiratory effort and able to speak in complete sentences Cardio Peripheral pulses: Peripheral pulses 2+ throughout Neuro General: patient oriented x3 Extrem Other: Right hip is normal to inspection. He does have limited range of motion of the left hip when pain with DIONISIO Assessment & Plan Assessment & Plan (1) Osteoarthritis of right hip: Code(s): M16.11 - Unilateral primary osteoarthritis, right hip Category: Medical Plan: 33-year-old gentleman with severe osteoarthritis of the right hip. We have discussed options and we continued that discussion today. We discussed steroids, PRP and surgery as well as medications for his pain at night. At this point he would like to go back to work without restrictions which is essentially already doing. We will try a PRP injection in his right hip. Referral was made to [facility] in pain management. I wrote him a prescription for gabapentin 300 mg at night. Explained to him the medication and it suffer a FX. He can follow up with me in 4 months. Orders: Referrals Pain Management Referral M16.11 - Unilateral primary osteoarthritis, right hip Medications: New gabapentin 300 mg PO BEDTIME 30 caps 2RF Coding Level of Care Code Est Pt Level 4 (31801) Diagnoses Osteoarthritis of right hip M16.11
--- OUTSIDE RECORDS SUMMARY | 2024-09-29 10:23 | XMS_ITS | Clinical Summary ---
Author Organization [employer] [facility] ity Address [address] [place] [address] Care Team Providers Care Manager Intensive Care Unit Name Role Phone Unavailable Primary Care Provider [...] 2008 COVID-19 Vaccine (2023-2 5 season) 2023 Depression Screening 02/13/2024 Influenza Vaccine (#1) 2024 HIB Vaccines Aged Out No longer eligi [...] age to complete this topic Meningococcal B Vaccine Aged Out No l onger eligible based on patient's age to complete this topic Pneumococcal Vaccine: Pediat rics (0 to 5 Years) and At-Risk Patients (6 to 49 Years) Aged Out No longer eligible b ased on patient's age to complete this topic RSV Immunization Patients Un junie 20 months Aged Out No longer eligible b ased on patient's age to complete this topic Varicella Vaccines Aged Out No longer eligible based on patient's age to complete this topic
== END 2024-09-29 10:31 | disposition home or self-care (01) ==
LOC: HO.HOS 09:42
PROVIDERS: PCP Physician Assistant; Visit Provider Orthopaedic Surgery
DX: M16.11 Unilateral primary osteoarthritis, right hip (principal)
CPT/HCPCS: 99214